=== PATIENT | male | born 1940 | race Caucasian/White ===

== ENCOUNTER → 2018-03-25 | Outpatient (CLI) | payer MEDICARE, OTHER ==
[~2018-03-25] VITALS: Ht 160 cm; Wt 61.2 kg
[2018-03-25] VITALS (10 sets, daily range): BP systolic 150–180; BP diastolic 81–92
--- NOTE | 2018-03-25 14:50 | RAD ---
PORTABLE CHEST 1V Clinical Indication: POST THORACENTESIS Comparison: None available. Findings: There is no left pneumothorax. There is small left pleural effusion. The right lung is clear. Atherosclerotic and tortuous thoracic aorta. Cardiac size upper limits of normal. There is a large left midlung mass measuring up to 7.2 cm. There is central lucency and the mass may be cavitary. If mass is not a known finding CT chest may be useful. IMPRESSION: No pneumothorax. Electronically signed by: Rylan Cash MD (03/25/2018 2:47 PM) [id number]
[2018-03-25 16:41] LABS: BF CLARITY HAZY; BF COLOR YELLOW; BF MON % 71 %; BF PMN % 29 %; BF RBC COUNT 9347 /cmm; BF SOURCE PLEURAL; BF WBC COUNT 545 /cmm
[2018-03-25 16:42] LABS: PH,BODY FLUID 7.53
--- NOTE | 2018-03-26 14:33 | RAD ---
Ultrasound-guided right-sided thoracentesis 03/26/2018 2:29 PM Indication: L PLEURAL EFFUSION Procedure: Informed consent was obtained. A timeout procedure was performed. Sonographic evaluation of the left chest was performed demonstrating moderate pleural effusion. The left posterior chest was prepped and draped in sterile fashion. 1% lidocaine without epinephrine was administered for local anesthesia. Real-time ultrasonographic guidance was used in passing a 5 [employer] catheter into the left pleural space. 1.3 L of serosanguineous pleural fluid was removed. Samples of fluid were sent to the lab for further evaluation per ordering physician request. The catheter was removed and pressure held to achieve hemostasis. A sterile dressing was applied. No immediate complications were identified. The patient tolerated the procedure well. Impression: Left sided ultrasound-guided thoracentesis
--- NOTE | 2018-03-26 16:08 | PATHOLOGY ---
Note [facility] Accession Number: [id number] TESTS RESULT FLAG UNITS REF RANGE LAB Clinician Provided Cytology Information No. of containers..01 Other (Miscellaneous) Source: 01 L PLEURAL FLUID DIAGNOSIS: 02 L PLEURAL FLUID NEGATIVE FOR MALIGNANT CELLS. MESOTHELIAL CELLS ARE PRESENT. THIS INTERPRETATION INCLUDES EVALUATION OF A CELL BLOCK. COMMENT; MANY LYMPHOCYTES PRESENT. Signed out by: 02 Bert Ren MD, Pathologist NPI- [id number] Performed by: Rylan Storey, Supervisor [place] ([facility]) Gross description: 01 30ML, SINTIA, CLEAR /LCS FLAG LEGEND: L-Low Normal,H-High Normal,LL-Alert Low,HH-Alert High <-Panic Low,>-Panic High,A-Abnormal,AA-Critical Abnormal Performed at: [address] [place] [address] Nilo Dwyer MD, 02 [facility] [address] [place] [address] John Paul Underwood MD, Specimen Comment: A courtesy copy of this report has been sent to Specimen Comment: [phone]. Specimen Comment: Report sent to Performed at: [address], [place], [place] [id number] MD Nilo Dwyer MD Phone: [phone]
== END | disposition home or self-care (01) ==
LOC: INTRAD 12:21
PROVIDERS: ATTEND Internal Medicine Pulmonary Disease
DX: J90 Pleural effusion, not elsewhere classified (principal); M19.90 Unspecified osteoarthritis, unspecified site; I10 Essential (primary) hypertension; Z98.890 Other specified postprocedural states; Z79.899 Other long term (current) drug therapy
CPT/HCPCS: 32555; 71045; 82465; 82945; 83615; 83986; 84157; 87071; 87075; 87116; 89050

== ENCOUNTER 2018-04-09 10:08 | Emergency (ER) | payer MEDICARE, OTHER ==
[~2018-04-09] VITALS: Ht 157.5 cm; Wt 59.0 kg
[2018-04-09 10:30] VITALS: BP 148/92
[2018-04-09] MEDS ORDERED: VALA1000 PO (10:54)
[2018-04-09] MEDS ORDERED: GABA-585 PO (10:57)
--- NOTE | 2018-04-09 10:57 | PHYS DOC ---
Past Medical History Past Medical History: Bronchitis, COPD Past Surgical History: Other Additional Past Surgical Histo: HEMMORHOID Additional Information: former smoker Alcohol Use: None Drug Use: None Adult General Chief Complaint Chief Complaint: SKIN PROBLEM HPI HPI 78-year-old male presenting to the emergency department with a rash with blisters of the right thigh and leg over the past 3 days. He has a history of COPD. He has pain in the leg that is sharp mild to moderate nonradiating without alleviating factors. He denies fevers chills or any other symptoms. Review of systems is negative for chest pain shortness of breath fevers chills headache vision changes. All other review of systems is negative unless otherwise noted in history of present illness. ED course: 78-year-old male presenting the emergency department with signs and symptoms suggestive of herpes zoster. We will initiate antiviral medications and gabapentin for pain to follow up with PCP in one to 2 days.The patient has been examined and was not found to have an emergency medical condition. The patient was then discharged home in stable condition to follow up with their primary care physician over the next 2-3 days. They were to return if their symptoms worsened or if they were concerned for any reason. They were also instructed to return to the emergency department if they were unable to get the recommended and appropriate follow-up. [id number] discharge instructions and return precautions were given. Patient's questions were answered to their satisfaction. Patient is comfortable with plan. Review of Systems Review of Systems SEE ABOVE. Allergies Allergies Allergies Coded Allergies Type Severity Reaction Last Updated Verified No Known Drug Allergies 03/25/18 No Physical Exam Physical Exam SEE ABOVE Constitutional: Well developed, well nourished, no acute distress, non-toxic appearance. [] HENT: Normocephalic, atraumatic, bilateral external ears normal, oropharynx moist, no oral exudates, nose normal. [] Eyes: PERRLA, EOMI, conjunctiva normal, no discharge. [] Neck: Normal range of motion, no tenderness, supple, no stridor. [] Cardiovascular:Heart rate regular rhythm, no murmur [] Lungs & Thorax: Bilateral breath sounds clear to auscultation [] Abdomen: Bowel sounds normal, soft, no tenderness, no masses, no pulsatile masses. [] Skin: there is a blistering rash along the L3, L4 distribution on the right leg. Back: No tenderness, no CVA tenderness. [] Extremities: No tenderness, no cyanosis, no clubbing, ROM intact, no edema. [] Neurologic: Alert and oriented X 3, normal motor function, normal sensory function, no focal deficits noted. [] Psychologic: Affect normal, judgement normal, mood normal. [] Current Patient Data Vital Signs Vital Signs Date Time Temp Pulse Resp B/P (MAP) Pulse Ox O2 Delivery O2 Flow Rate FiO2 04/09/18 10:30 98.3 55 16 148/92 (110) 98 Room Air 98.3 EKG EKG [] Radiology/Procedures Radiology/Procedures [] Course & Med Decision Making Course & Med Decision Making Pertinent Labs and Imaging studies reviewed. (See chart for details) [] Dragon Disclaimer Dragon Disclaimer This electronic medical record was generated, in whole or in part, using a voice recognition dictation system. Departure Departure Impression: Primary Impression: Herpes zoster Disposition: 01 HOME, SELF-CARE Condition: STABLE Referrals: ZANE PUGH MD (PCP) Patient Instructions: Shingles Additional Instructions: Thank you for allowing us to participate in your care today. Return to the emergency department you have any new or worsening symptoms, or if you are concerned for any reason. Return to emergency department if you have any new or concerning symptoms including but not limited to fever, chills, nausea, vomiting, intractable pain, any new rashes, chest pain, shortness of air , uncontrolled bleeding, difficulty breathing, and/or vision loss. Follow up with your primary care physician within 1-2 days. Call your Primary Doctor tomorrow and inform them of your visit today. If you do not have a primary care provider we are happy to provide you with a list of our primary care providers contact information. This condition should be evaluated by your primary care physician and any recommended consulting services for continued management within 2 days after discharge. If at any time, you are having difficulty getting into your primary care doctor or a specialist, return to the emergency department. Scripts Gabapentin (GABAPENTIN ) 100 Mg Capsule 100 MG PO TID for NEUROGENIC PAIN for 7 Days, #21 CAP Prov: TRAVIS CHILDERS MD 04/09/18 Valacyclovir Hcl (VALACYCLOVIR) 1,000 Mg Tablet 1 TAB PO TID, #21 TAB Prov: TRAVIS CHILDERS MD 04/09/18 TRAVIS CHILDERS MD Apr 09, 2018 10:57
== END 2018-04-09 11:08 | disposition home or self-care (01) ==
LOC: ER 10:08
DX: B02.8 Zoster with other complications (principal); J44.9 Chronic obstructive pulmonary disease, unspecified; S70.321A Blister (nonthermal), right thigh, initial encounter; Z87.891 Personal history of nicotine dependence; X58.XXXA Exposure to other specified factors, initial encounter; Y93.89 Activity, other specified; Y92.89 Other specified places as the place of occurrence of the external cause; Y99.8 Other external cause status
CPT/HCPCS: 99283

== ENCOUNTER 2018-04-19 07:03 | Outpatient (CLI) | payer MEDICARE, OTHER ==
[2018-04-19] VITALS (11 sets, daily range): BP systolic 155–180; BP diastolic 85–100
[~2018-04-19] VITALS: Ht 157.5 cm; Wt 59.0 kg
[~2018-04-19 07:03] MED LIST: GABA-585 PO; VALA1000 PO
[2018-04-19 07:35] LABS: BASO # 0.1 x10^3/uL (0.0-0.2); BASO % 1 % (0-3); EOS # 0.2 x10^3/uL (0.0-0.7); EOS % 2 % (0-3); HEMATOCRIT 35.3 % (39.0-53.0); HEMOGLOBIN 11.6 g/dL (13.0-17.5); LYMPH # 2.2 x10^3/uL (1.0-4.8); LYMPH % 16 % (24-48); MEAN CORPUSCULAR HEMOGLOBIN 28 pg (25-35); MEAN CORPUSCULAR HGB CONC 33 g/dL (31-37); MEAN CORPUSCULAR VOLUME 86 fL (79-100); MONO # 1.1 x10^3/uL (0.0-1.1); MONO % 8 % (0-9); NEUT % 74 % (31-73); PLATELET COUNT 631 x10^3/uL (140-400); RED BLOOD COUNT 4.12 x10^6/uL (4.30-5.70); RED CELL DISTRIBUTION WIDTH 14.8 % (11.5-14.5); WHITE BLOOD COUNT 13.6 x10^3/uL (4.0-11.0)
[2018-04-19 07:44] LABS: PROTHROMBIN TIME PATIENT 13.4 SEC (11.7-14.0)
[2018-04-19] MEDS ORDERED: LIDOCAINE WITH 8.4% SOD BICARB 3 ML DISP.SYRIN. ONE (08:09)
[2018-04-19] MEDS ORDERED: MIDAZOLAM HCL/PF 2 MG/2 ML VIAL. ONE (08:09)
[2018-04-19] MEDS ORDERED: fentaNYL PF VIAL 100 MCG/2 ML VIAL ONE (08:10)
[2018-04-19] MEDS ORDERED: fentaNYL PF VIAL 100 MCG/2 ML VIAL IV ONE (08:15)
[2018-04-19] MEDS ORDERED: MIDAZOLAM HCL/PF 2 MG/2 ML VIAL. IV ONE (08:15)
[2018-04-19] MEDS ORDERED: LIDOCAINE WITH 8.4% SOD BICARB 3 ML DISP.SYRIN. IJ ONE (08:15)
--- NOTE | 2018-04-19 10:06 | RAD ---
CT-guided biopsy, left upper lobe lung mass 04/19/2018 Discussion: The risks and benefits of the procedure were discussed the patient. Informed consent was obtained. A timeout procedure was performed. The left anterior chest was prepped and draped using sterile barrier technique. 1% lidocaine was administered for local anesthesia. Under intermittent CT guidance a 17-gauge needle was advanced into the known irregular left upper consolidation concerning for primary lung malignancy. Multiple core biopsy samples were obtained. The needles were removed. Manual pressure was held. Repeat CT imaging demonstrates no pneumothorax or other complication. The patient tolerated the procedure well remaining hemodynamically stable throughout. The procedure was performed under conscious sedation including continuous cardiopulmonary monitoring via dedicated sedation nurse. [id number] sedation time: 20 minutes Impression: CT-guided biopsy, left upper lobe lung mass PQRS Compliance Statement: One or more of the following individualized dose reduction techniques were utilized for this examination: 1. Automated exposure control 2. Adjustment of the mA and/or kV according to patient size 3. Use of iterative reconstruction technique
--- NOTE | 2018-04-19 10:46 | RAD ---
Chest radiograph 04/19/2018 10:30 AM INDICATION: Lung biopsy COMPARISON: Chest radiograph March 25, 2018 TECHNIQUE: Portable upright frontal view of the chest is provided. FINDINGS: The cardiomediastinal silhouette is within normal limits. Masslike airspace consolidation in the left upper lobe appears similar to March 25, 2018. No pneumothorax is identified. There is small left pleural effusion appears improved since prior examination. IMPRESSION: Status post biopsy of a left upper lobe lung mass without evidence for pneumothorax. Electronically signed by: Arabella Copeland MD (04/19/2018 10:42 AM) [facility]
--- NOTE | 2018-04-23 13:07 | PATHOLOGY ---
[facility] Accession Number: [id number] . 01 Material submitted: . LEFT LUNG MASS BIOPSY . 01 Clinical history: . Left upper lobe lung mass . 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 . (SK:mm; 04/22/18) [facility]/04/22/2018 . 02 Comment: The preliminary findings in this case relayed to Lauren at Dr. Quintana's office on 04/21/18. . The tumor cells are positive for p40 and Cytokeratin 7. The tumor cells are negative for TTF-1, Napsin, and Synaptophysin. . Dr. Taina Garduno has also reviewed this case and she agrees with the diagnosis of non-small cell carcinoma. . ([facility]; 04/22/18) . 02 Electronically signed: . Bassam Choe MD, Pathologist NPI- [id number] . 01 Gross description: . Received in formalin labeled "Carlos Baldwin, left lung mass," are multiple fragments of needle cores of thrasher soft tissue measuring 0.8 x 0.5 x 0.1 cm in aggregate dimensions. The specimen is filtered and entirely submitted in cassette A1. ([facility]; 04/19/2018) TOB/TOB . 02 Pathologist provided ICD-10: C34.12 . 02 CPT . 440391, M53931, N76592 Specimen Comment: A courtesy copy of this report has been sent to Specimen Comment: [phone], , . Specimen Comment: Report sent to , and Performed at: 01 [facility] [address], [place], [place] [id number] MD Nilo Dwyer MD Phone: [phone] Performed at: 02 [facility] [address] [address], [place], [place] [id number] MD Davis Ashford MD Phone: [phone]
== END 2018-04-19 11:30 | disposition home or self-care (01) ==
LOC: INTRAD 07:03
PROVIDERS: ATTEND Internal Medicine Pulmonary Disease
DX: C34.12 Malignant neoplasm of upper lobe, left bronchus or lung (principal); J44.9 Chronic obstructive pulmonary disease, unspecified; Z86.19 Personal history of other infectious and parasitic diseases; Z79.899 Other long term (current) drug therapy; Z79.01 Long term (current) use of anticoagulants
CPT/HCPCS: 32405; 36415; 71045; 77012; 85025; 85610; 99152; J2250; J3010

== ENCOUNTER → 2018-04-29 | Outpatient (CLI) | payer MEDICARE, OTHER ==
[2018-04-19 10:55] VITALS: BP 168/97
--- NOTE | 2018-04-29 14:49 | RAD ---
CLINICAL HISTORY: Lung nodule INDICATION: Initial evaluation. COMPARISON: Prior CT 04/15/2014. TECHNIQUE: Location of scan: [facility] Radiopharmaceutical Dose: 14.03 mCi F-18 FDG intravenous Blood glucose at time of study: 96 FDG uptake time = 60 minutes. Images were obtained from the mid head to the mid thighs. A low dose, noncontrast CT study was performed for the purpose of attenuation correction and anatomic localization. FINDINGS: Head and Neck: A 1.9 x 1.4 cm lymph node is seen overlying the left parotid gland with an SUV max of 9.1. Otherwise physiologic activity within the head and neck. Chest: An 8.7 x 6.9 cm left upper lobe/lingular mass is seen with increased metabolic activity, with an SUV max of 21.4. A 1.1 cm left lower lobe lung nodule is seen with an SUV max of 4.6. A subcarinal lymph node with an SUV max of 3.2 is seen measuring approximately 8 mm short axis. Several foci of pleural-based nodularity are seen with associated increased metabolic activity. In the posterior left lower lobe a focus has an SUV max of 6.2 and laterally left lower lobe focus of increased metabolic activity has an SUV max of 5.5. Abdomen and Pelvis: Physiologic activity is seen within the liver and spleen. Physiologic GI and activity is seen. Left adrenal nodular thickening is seen with only physiologic activity of 1.9 Skeletal: A 9 mm lucent lesion is seen within the left T2 transverse process with an SUV max of 4.9. Reference SUV Values: Mediastinal SUV Max: 2.2 Liver SUV Max: 2.5 IMPRESSION: Left lung mass with increased metabolic activity likely denotes primary lung cancer. Associated metastatic disease is suspected with nodular and pleural-based densities of increased metabolic activity in the left lung. Additionally a lymph node in the left parietal region also has increased metabolic activity. Also a 9 mm lucent lesion in the left T2 transverse process also has mildly increased metabolic activity suspicious for osseous metastatic disease. Radiation Dosimetry: The radiopharmaceutical used for this exam delivers approximately 0.7 mSv/mCi (70 mRem/mCi) Source: ICRP Publication 106
== END | disposition home or self-care (01) ==
LOC: PETSC 10:35
PROVIDERS: ATTEND Internal Medicine Pulmonary Disease
DX: R91.8 Other nonspecific abnormal finding of lung field (principal)
CPT/HCPCS: 78815; A9552

== ENCOUNTER → 2018-06-09 | Outpatient (CLI) | payer MEDICARE, OTHER ==
[2018-04-19 10:55] VITALS: BP 168/97
[~2018-06-09] MED LIST changes: +GADOBUTROL 7.5 MMOL/7.5 ML VIAL IV ONE
--- NOTE | 2018-06-09 14:12 | RAD ---
EXAM: Thoracic spine MRI without and with contrast. HISTORY: Osseous metastatic disease. Multiple myeloma. TECHNIQUE: Multiplanar, multisequence magnetic resonance imaging of the thoracic spine was performed prior to and following the administration of 6 cc Gadavist intravenous contrast. COMPARISON: PET/CT dated 04/29/2018. FINDINGS: There is slight increased thoracic kyphosis. There is mild thoracolumbar scoliosis. There is no significant thoracic listhesis. There is diffusely heterogeneous marrow signal intensity due to fatty marrow placement. There are few small osseous hemangiomas. No convincing thoracic osseous metastatic disease is seen. There is degenerative endplate remodeling with anterior predominant spurring at multiple levels. There are multiple small endplate Schmorl's nodes. There is no acute or subacute fracture. No spinal cord lesion is seen. The conus terminates at L1. No suspicious enhancing thoracic spine lesion is seen. There is left apical pleural thickening with adjacent septal line thickening. There is a large mass within the left upper lobe and scattered small left greater than right pulmonary nodules. There is a small left pleural effusion and there are multiple pleural-based nodules. These are better characterized on the prior PET/CT. There is a tortuous thoracoabdominal aorta. At T1-T2, there is a disc bulge and endplate remodeling. There is mild facet arthropathy. There is mild bilateral foraminal stenosis. At T8-T9, there is a minimal posterior central disc protrusion superimposed on endplate remodeling. There is mild facet arthropathy. There is no stenosis. At T9-T10, there is a right paracentral to foraminal disc protrusion with superior extrusion superimposed on endplate remodeling. There is mild bilateral facet arthropathy. There is mild to moderate right foraminal stenosis. At T10-T11, there is a right foraminal to predominant disc bulge and endplate osteophytosis. There is mild bilateral facet arthropathy. There is mild to moderate right foraminal stenosis. At T11-T12, there is a right lateral predominant disc bulge and endplate osteophytosis. There is moderate right foraminal stenosis. IMPRESSION: 1. No convincing metastatic disease involving the thoracic spine. 2. Left lower lobe mass with surrounding left greater than right lung pulmonary nodules and pleural-based nodules likely due to metastatic disease. 3. Multilevel degenerative change within the thoracic spine, described above. 4. Degenerative change involving the cervical spine, not formally assessed on this exam. 5. Small left pleural effusion. 6. Please refer to the recent PET/CT for additional nonthoracic spine findings. Electronically signed by: Court Solis MD (06/09/2018 2:09 PM) [facility]
--- NOTE | 2018-06-09 14:30 | RAD ---
EXAM: Brain MRI with and without contrast. HISTORY: Lung cancer. Multiple myeloma. TECHNIQUE: Multiplanar, multisequence magnetic resonance imaging of the brain was performed prior to and following the administration of 6 cc Gadavist intravenous contrast. COMPARISON: None. FINDINGS: There is no restricted diffusion to suggest acute or subacute infarction. There is no susceptibility effect to suggest hemorrhage. There is no mass effect or midline shift. There is a 4.5 cm benign intraventricular cyst within the posterior right lateral ventricle. There is ventricular enlargement due to cerebral atrophy. No convincing hydrocephalus is seen. There are multiple scattered and confluent areas of signal change throughout the cerebral white matter and abilio, a nonspecific finding likely due to chronic small vessel disease. There is evidence of lens surgery. There is mild right ethmoid sinus thickening. There is fluid within the mastoid air cells. There is a suspected hypoplastic distal left vertebral artery, a normal variant. No suspicious enhancing lesion is seen. IMPRESSION: 1. No acute intracranial finding or evidence of intracranial metastatic disease. 2. Scattered areas of signal change throughout the cerebral white matter and abilio, likely due to chronic small vessel disease. 3. Cerebral atrophy with compensatory enlargement of the ventricles. There is a superimposed incidental benign right intraventricular cyst. Electronically signed by: Court Solis MD (06/09/2018 2:27 PM) [facility]
== END | disposition home or self-care (01) ==
LOC: MRI 09:55
PROVIDERS: ATTEND Internal Medicine Hematology & Oncology
DX: C34.92 Malignant neoplasm of unspecified part of left bronchus or lung (principal); C79.51 Secondary malignant neoplasm of bone; M48.04 Spinal stenosis, thoracic region; M12.88 Other specific arthropathies, not elsewhere classified, other specified site; J90 Pleural effusion, not elsewhere classified; M41.85 Other forms of scoliosis, thoracolumbar region; M51.44 Schmorl's nodes, thoracic region; J92.9 Pleural plaque without asbestos; M51.24 Other intervertebral disc displacement, thoracic region; G31.9 Degenerative disease of nervous system, unspecified; G93.0 Cerebral cysts
CPT/HCPCS: 70553; 72157; A9585

== ENCOUNTER → 2018-07-29 | Outpatient (CLI) | payer MEDICARE, OTHER ==
[2018-04-19 10:55] VITALS: BP 168/97
[~2018-07-29] MED LIST changes: -GADOBUTROL 7.5 MMOL/7.5 ML VIAL IV ONE
--- NOTE | 2018-07-29 14:31 | RAD ---
FDG tumor localization scan, PET/CT, 07/29/2018: History: Lung cancer Following IV injection of 15.4 mCi of 18 F-FDG, imaging was performed from the skull base to the proximal thighs. The noncontrast CT component was performed for attenuation correction and anatomic localization purposes rather than for primary diagnosis. The patient's blood glucose level at the time of injection was 113 injury/DL. Comparison is made to a study from 04/29/2018. The large left upper lobe mass is of similar size when compared to the previous study. It currently demonstrates a maximum issue via of 19.9. There is decreased activity centrally suggesting a component of necrosis. There are increasing hypermetabolic foci in the left chest which are predominantly pleural-based. These have increased in size and number and degree of FDG uptake. There are 2 small new densities in the posterior aspect of the right chest which are mildly hypermetabolic. These abut the pleura. There is an unchanged hypermetabolic nodule in the upper neck adjacent to the parotid gland. Normal GI tract and urinary tract activity is evident in the abdomen and pelvis. No hypermetabolic intra-abdominal process is seen. The hypermetabolic lytic process involving the left transverse process at T2 has progressed. There are new scattered bony lesions including the proximal left femur, the medial aspect of the left iliac bone, approximately the T5 vertebral body and the right scapula. IMPRESSION: 1. The patient's large hypermetabolic left upper lobe neoplasm is of similar size and degree of FDG uptake compared to exam of 04/29/2018. 2. Worsening pleural and subpleural hypermetabolic opacities in the left chest compatible with metastatic disease. 3. New small mildly hypermetabolic right pulmonary nodules compatible with metastatic disease. 4. Worsening multifocal osseous metastatic disease with new involvement including the left femur and mid thoracic spine.
== END | disposition home or self-care (01) ==
LOC: PETSC 09:30
PROVIDERS: ATTEND Internal Medicine Hematology & Oncology
DX: C34.12 Malignant neoplasm of upper lobe, left bronchus or lung (principal); C79.51 Secondary malignant neoplasm of bone; C79.52 Secondary malignant neoplasm of bone marrow; R53.83 Other fatigue; R22.1 Localized swelling, mass and lump, neck
CPT/HCPCS: 78815; A9552